=== PATIENT | male | born 1970 | race Caucasian/White ===

== ENCOUNTER → 2018-09-05 | Outpatient (CLI) | payer OTHER ==
[~2018-09-05] MED LIST: NO ROUTINE MEDS; TOBROD OP
--- NOTE | 2018-09-05 17:31 | RADIOLOGY IMAGING REPORT ---
FACILITY: [facility] PATIENT NAME: Panda Payne : 1970 MR: [id number] V: [id number] EXAM DATE: ORDERING PHYSICIAN: BERTO BURLESON TECHNOLOGIST: Location: [facility] Patient: Panda Payne : 1970 Visit/Account:[id number] Date of Sevice: 09/05/2018 CHEST PA LAT HISTORY: Dyspnea. COMPARISON: Thoracic spine x-ray February 10, 2018. FINDINGS: Cardiomediastinal contours: The heart size is normal. Lungs and pleura: There is no finding of an infiltrate, lymphadenopathy or pleural effusion. Bones/soft tissues: There are no findings of a fracture. IMPRESSION: Normal chest x-ray without findings of acute disease. Report Dictated By: Louie Arshad MD at 09/05/2018 5:26 PM Report E-Signed By: Louie Arshad MD at 09/05/2018 5:27 PM WSN:[id number]
== END ==
LOC: RAD 15:59
PROVIDERS: ATTEND Internal Medicine
DX: D75.1 Secondary polycythemia (principal)
CPT/HCPCS: 71046

== ENCOUNTER → 2018-09-08 | Outpatient (CLI) | payer BC, OTHER | LOC: RESP 01:39 | PROVIDERS: ATTEND Internal Medicine | DX: J98.4 Other disorders of lung (principal) | CPT/HCPCS: 94060; 94726; 94729 ==